=== PATIENT | male | born 1945 | race Caucasian/White ===

== ENCOUNTER 2021-05-07 08:11 | Emergency (ER) | payer OTHER, SELFPAY ==
[2021-05-07 08:35] VITALS: BP 151/67; PULSE 58; RESP 14; TEMP 36.4; O2SAT 100; BMI 25.1
--- NOTE | 2021-05-07 09:28 | DI.CT.S_ITS ---
PROCEDURE: CT KIDNEY URETER BLADDER (KUB) INDICATIONS: Right flank pain/hematuria TECHNIQUE: Axial sections were acquired from the lung bases to the pubic symphysis. Coronal and sagittal reformats were performed. For radiation dose reduction, the following was used: automated exposure control, adjustment of mA and/or kV according to patient size. COMPARISON: None. FINDINGS: Image quality: Excellent. Lung bases: Unremarkable. Heart: No significant findings. URINARY: Right Kidney: No stones or hydronephrosis. Right Ureter: No hydroureter. Left Kidney: No stones or hydronephrosis. Left Ureter: No hydroureter. Bladder: The bladder is ABDOMEN: Liver: Numerous liver hypodensities are seen, which measure up to 1.4 cm. The liver demonstrates normal size and demonstrates no suspicious lesions. Gallbladder: Layering gallstones are seen within the gallbladder. Biliary ducts: Unremarkable. Pancreas: Unremarkable. Spleen: Unremarkable. Adrenal Glands: There is a 2.8 cm left adrenal nodule that measures -4 Hounsfield units.5 the central right adrenal gland measures 1 cm and -6 Hounsfield units. Stomach and Bowel: Stomach, small bowel loops, and colon are unremarkable. Colonic diverticulosis is seen, without findings of active diverticulitis. A normal appendix is incidentally noted. Peritoneum: No abnormal intraperitoneal fluid. No free air. Ventral Wall: No hernia. Abdominal Nodes: No enlarged retroperitoneal or mesenteric lymph nodes. Vessels: Aorta and inferior vena cava are normal in size. Atherosclerotic calcification is noted. PELVIS: Pelvic Organs: The prostate is prominent, measuring 6.3 cm transversely. Pelvic Nodes: Unremarkable. Miscellaneous: No inguinal hernias are seen. Bones: [id number] levoconvex scoliotic curvature is seen. Degenerative changes are seen throughout, which are worst involving the lumbar spine. IMPRESSION: Negative for kidney stones or findings of obstructive uropathy. Moderate circumferential bladder wall thickening can be seen. Bladder outlet obstruction is suspected in this patient with a mildly enlarged prostate. Incidental note is made of: Gallstones Presumed liver cysts, differential diagnosis includes hemangiomas Bilateral lipid rich adrenal adenomas, left larger than right Diverticulosis, without active diverticulitis Normal appendix Levoconvex scoliotic curvature Dictated by: Yoav Middleton M.D. on 05/07/2021 at 8:59 Approved by: Yoav Middleton M.D. on 05/07/2021 at 9:06
--- NOTE | 2021-05-07 09:29 | ED_ITS ---
HPI - Male Genitourinary General Chief complaint: Urogenital-Male Stated complaint: Blood in urine, Back pain Time Seen by Provider: 05/07/21 09:22 Source: patient Mode of arrival: Ambulatory History of Present Illness HPI Narrative: Patient complains of right flank pain and hematuria since yesterday. Started at work and he thought he was moving too many doors at work. No relief with Aleve. Cannot find comfortable position. Denies abdominal pain. No sweating nausea or vomiting. No numbness tingling or weakness. No prior history of kidney stones. There is a family history of kidney stones. Patient states urine color has started to clear up. Did have a clot in 1 of the episodes of urinating. Related Data Previous Rx's Medication Instructions Recorded phenazopyridine 100 mg tablet 100 mg PO TID PRN #6 tab 05/07/21 (Pyridium) sulfamethoxazole 800 1 tab PO BID #14 tab 05/07/21 mg-trimethoprim 160 mg tablet Allergies Allergy/AdvReac Type Severity Reaction Status Date / Time No Known Drug Allergies Allergy Verified 05/07/21 09:02 Review of Systems Review of Systems Narrative: GENERAL: Denies chills, fatigue, malaise, fever, sweats. HEENT: Denies sinus pain, ear pain, sore throat RESPIRATORY: Denies dyspnea, cough CARDIOVASCULAR: Denies chest pain, palpitations GASTROINTESTINAL: Denies nausea, vomiting, abdominal pain : Positive for urgency and dysuria, frequency, hematuria MUSCULOSKELETAL: denies muscle or bony pain, positive for back pain/right flank pain SKIN: Denies rash, skin lesions NEUROLOGIC: Denies weakness, numbness ROS Unobtainable: All systems reviewed & are unremarkable except as noted in HPI and below Patient History Social History Smoking Status: Never smoker Smoking Status: Never smoker Substance Use Type: does not use Exam Narrative Exam Narrative: GENERAL: in no distress, not toxic not dyspneic HEAD: Normocephalic. EYES: Pupils equal round No scleral icterus. NECK: Trachea midline. CARDIOVASCULAR: Regular rate and rhythm without murmurs RESPIRATORY: Clear to auscultation. Breath sounds equal bilaterally. No wheezes, rales, or rhonchi. GASTROINTESTINAL: Abdomen soft, non-tender, no peritoneal signs, bowel sounds present EXTREMITIES: No gross deformities. BACK: No flank tenderness. No CVA tenderness. No rash on the back. No muscle tenderness. No pain with movement NEURO: AOx4. SKIN: Warm and dry PSYCH: Not anxious, is cooperative Initial Vital Signs Initial Vital Signs: Vital Signs Temperature 97.5 F L 05/07/21 08:35 Pulse Rate 58 L 05/07/21 08:35 Respiratory Rate 14 05/07/21 08:35 Blood Pressure 151/67 H 05/07/21 08:35 Pulse Oximetry 100 05/07/21 08:35 Course Course Course Narrative: No new issues during course of stay Orders Ordered: ED Orders 05/07/21 09:28 CT kidney ureter bladder (KUB) Stat 05/07/21 09:48 UA Complete [Urinalysis and Microscopic] Stat Urine Culture Stat 05/07/21 10:00 CMP [Comprehensive Metabolic Panel] Stat Complete Blood Count AUTO DIFF Stat Discontinued Medications Sodium Chloride (Normal Saline 0.9%) 1,000 mls @ 1,000 mls/hr IV BOLUS ONE Stop: 05/07/21 10:27 Last Infusion: 05/07/21 11:26 Dose: 0 mls/hr Documented by: Admin: 05/07/21 10:21 Dose: 1,000 mls/hr Documented by: ZACHARIAH Phenazopyridine HCl (Phenazopyridine 100 Mg Tablet) 100 mg PO NOW ONE Stop: 05/07/21 11:10 Last Admin: 05/07/21 11:30 Dose: 100 mg Documented by: ZACHARIAH Trimethoprim/Sulfamethoxazole (Trimeth/Sulfa 160/800 (Ds) Tablet) 1 tab PO NOW ONE Stop: 05/07/21 11:10 Last Admin: 05/07/21 11:30 Dose: 1 tab Documented by: ZACHARIAH Reevaluation(s) Reevaluation #1: Reviewed results with patient. Pain control at this time. Not toxic. Return precautions reviewed with him. Patient states he saw a urologist last year in [place] and he will see him again Time: 11:11 Vital Signs Vital signs: Vital Signs - 8 hr 05/07/21 08:35 05/07/21 10:18 05/07/21 10:20 Temperature 97.5 F L Pulse Rate 58 L 54 L 54 L Respiratory Rate 14 20 Blood Pressure 151/67 H 132/65 Pulse Oximetry 100 99 100 05/07/21 10:30 05/07/21 11:00 Temperature Pulse Rate 53 L 57 L Respiratory Rate Blood Pressure 118/58 L 129/64 Pulse Oximetry 99 99 MDM - Male Genitourinary Differential Diagnosis Differential diagnosis: Likely urinary tract infection and other (Kidney stone) Lab Data Result diagrams: 05/07/21 10:00 05/07/21 10:00 Labs: Lab Results 05/07/21 05/07/21 05/07/21 Range/Units 09:48 10:00 10:00 WBC 11.4 H (4.5-11.0) X10^3/uL RBC 4.75 (4.5-5.9) X10^6/uL Hgb 14.4 (13.5-17.5) g/dL Hct 41.9 (41-53) % MCV 88.3 (80-100) fL MCH 30.3 (26-34) PG MCHC 34.3 (30-36) % RDW 13.8 (11.6-14.8) % Plt Count 277 (150-400) X10^3/uL Neut % (Auto) 79.3 H (50-75) % Lymph % (Auto) 12.0 L (25-40) % [place] % (Auto) 7.8 (3-14) % Eos % (Auto) 0.5 L (2-4) % Baso % (Auto) 0.4 (0-2) % Neut # (Auto) 9000 H (6908-9302) /uL Lymph # (Auto) 1400 (8254-0659) /uL [place] # (Auto) 900 (0-900) /uL Eos # (Auto) 100 (0-450) /uL Baso # (Auto) 0 (0-100) /uL Sodium 137 (137-145) mmol/L Potassium 4.0 (3.4-5.1) mmol/L Chloride 103 (98-107) mmol/L Carbon Dioxide 29 (22-32) mmol/L BUN 16 (9-20) mg/dL Creatinine 0.64 L (0.66-1.25) mg/dL Estimated GFR > 60.0 (>60) mL/min BUN/Creatinine Ratio 25.0 H (6-22) Glucose 98 (80-110) mg/dL Calcium 9.3 (8.4-10.2) mg/dL Total Bilirubin 3.3 H (0.2-1.3) mg/dL AST 31 (17-59) IU/L ALT 19 (<50) IU/L Alkaline Phosphatase 62 (38-126) U/L Total Protein 7.4 (6.3-8.2) g/dL Albumin 4.4 (3.5-5.0) g/dL Globulin 3.0 (1.7-4.1) g/dL Albumin/Globulin Ratio 1.5 (1.0-2.8) Urine Color Yellow Urine Appearance Sl cloudy Urine pH 6.5 (4.5-8.0) Ur Specific [place] 1.010 (1.000-1.035) Urine Protein Trace H (Negative) Urine Glucose (UA) Negative (Negative) g/dL Urine Ketones Negative (NEGATIVE) Urine Occult Blood 3+ H (Negative) Urine Nitrate Positive H (Negative) Urine Bilirubin Negative (NEGATIVE) Urine Urobilinogen 0.2 (0.2) E.U./dL Ur Leukocyte Esterase 1+ H (NEGATIVE) Urine RBC >100/hpf H (0-5/HPF) Urine WBC 5-10/hpf H (0-5/HPF) Urine Bacteria Many (>30) H (None) Ur Culture Indicated? Specimen cultured Imaging Data CT scan - abdomen/pelvis: Radiologist's Impression: [place] [address] CT Scan Report Signed Patient: Giovany Rodriguez MR#: [id number] : 1945 Acct:[id number] Age/Sex: 75 / M Date of Service: 05/07/21 Loc: ED Accession Number: [id number] ?? Procedure: CT kidney ureter bladder (KUB) Ordering Provider: Jaspreet Izaguirre MD PROCEDURE:? CT KIDNEY URETER BLADDER (KUB) ? INDICATIONS:? Right flank pain/hematuria ? TECHNIQUE:? Axial sections were acquired from the lung bases to the pubic symphysis.? Coronal and sagittal reformats were performed.? For radiation dose reduction, the following was used: ?automated exposure control, adjustment of mA and/or kV according to patient size.? ? COMPARISON:? None. ? FINDINGS:? Image quality:? Excellent.? ? Lung bases:? Unremarkable.? ? Heart:? No significant findings. ? URINARY: Right Kidney: ? No stones or hydronephrosis.? Right Ureter:? No hydroureter.? ? Left Kidney: ? No stones or hydronephrosis. Left Ureter:? No hydroureter.? ? Bladder:? The bladder is ? ABDOMEN: Liver:? Numerous liver hypodensities are seen, which measure up to 1.4 cm.? The liver demonstrates normal size and demonstrates no suspicious lesions. Gallbladder:? Layering gallstones are seen within the gallbladder.? ? Biliary ducts:? Unremarkable.? ? Pancreas:? Unremarkable.? ? Spleen:? Unremarkable.? ? Adrenal Glands:? There is a 2.8 cm left adrenal nodule that measures -4 Hounsfield units.5 the central right adrenal gland measures 1 cm and -6 Hounsfield units. ? Stomach and Bowel:? Stomach, small bowel loops, and colon are unremarkable.? Colonic diverticulosis is seen, without findings of active diverticulitis. A normal appendix is incidentally noted.? Peritoneum:? No abnormal intraperitoneal fluid.? No free air.? ? Ventral Wall: ? No hernia.? Abdominal Nodes:? No enlarged retroperitoneal or mesenteric lymph nodes.? Vessels:? Aorta and inferior vena cava are normal in size.? Atherosclerotic calcification is noted.? ? PELVIS: Pelvic Organs:? The prostate is prominent, measuring 6.3 cm transversely.? Pelvic Nodes: Unremarkable. Miscellaneous: No inguinal hernias are seen. ? ? ? Bones:? [id number] levoconvex scoliotic curvature is seen.? Degenerative changes are seen throughout, which are worst involving the lumbar spine. ? IMPRESSION:? ? Negative for kidney stones or findings of obstructive uropathy. ? Moderate circumferential bladder wall thickening can be seen.? Bladder outlet obstruction is suspected in this patient with a mildly enlarged prostate. ? Incidental note is made of: Gallstones Presumed liver cysts, differential diagnosis includes hemangiomas Bilateral lipid rich adrenal adenomas, left larger than right Diverticulosis, without active diverticulitis Normal appendix Levoconvex scoliotic curvature ? Dictated by: Yoav Middleton M.D. on 05/07/2021 at 8:59 ? ? Approved by: Yoav Middleton M.D. on 05/07/2021 at 9:06 ? MDM Narrative Medical decision making narrative: Appropriate for discharge home. Exam and laboratory studies and imaging are reassuring. Return precautions reviewed with patient. Antibiotics started for patient. Prescriptions as well. Referral for Urology given. Patient agrees with treatment plan and follow-up. Discharge Plan Departure Patient Disposition: Home Clinical Impression: Acute hemorrhagic cystitis Instructions: DI for Urinary Tract Infection (UTI) Activity Restrictions/Additional Instructions: See your urologist next week for re-evaluation or call provided urology office today to make appointment. Keep well hydrated. Prescription has been sent to your [facility]. Continue them tonight. Return if worse if any questions or concerns Prescriptions: New sulfamethoxazole-trimethoprim 800-160 mg tablet 1 tab PO BID Qty: 14 0RF phenazopyridine [Pyridium] 100 mg tablet 100 mg PO TID PRN (Reason: pain) Qty: 6 0RF Referrals: Hal Mendes ARNP [Primary Care Provider] - Luigi Howard MD [Non-Staff] -
[2021-05-07 09:51] LABS: Appearance Urine UA SL CLOUDY; Bilirubin Urine UA NEGATIVE (NEGATIVE); Color Urine UA YELLOW; Glucose Urine UA NEGATIVE (Negative); Ketones Urine UA NEGATIVE (NEGATIVE); Leukocyte Esterase Urine UA 1+ (NEGATIVE); Nitrite Urine UA POSITIVE (Negative); Occult Blood Urine UA 3+ (Negative); Protein Urine UA TRACE (Negative); Urobilinogen Urine UA 0.2 E.U./dL (0.2); pH Urine UA 6.5 (4.5-8.0)
[2021-05-07 10:01] LABS: Bacteria Urine Many (>30); RBC Urine >100/HPF (0-5/HPF); WBC Urine 5-10/HPF (0-5/HPF)
[2021-05-07 10:02] LABS: Culture Indicated Urine Specimen Cultured
[2021-05-07 10:14] LABS: Add Manual Diff / Slide Review NO; Basophils Absolute Auto 0 /uL (0-100); Basophils Percent Auto 0.4 % (0-2); Eosinophils Absolute Auto 100 /uL (0-450); Eosinophils Percent Auto 0.5 % (2-4); Hematocrit 41.9 % (41-53); Hemoglobin 14.4 g/dL (13.5-17.5); Lymphocytes Absolute Auto 1400 /uL (1100-4500); Mean Corpuscular HGB Conc 34.3 % (30-36); Mean Corpuscular Hemoglobin 30.3 PG (26-34); Mean Corpuscular Volume 88.3 fL (80-100); Monocytes Absolute Auto 900 /uL (0-900); Monocytes Percent Auto 7.8 % (3-14); Neutrophils Absolute Auto 9000 /uL (1500-7000); Neutrophils Percent Auto 79.3 % (50-75); Platelet Count 277 X10^3/uL (150-400); Red Blood Cell Count 4.75 X10^6/uL (4.5-5.9); Red Cell Distribution Width 13.8 % (11.6-14.8); White Blood Cell Count 11.4 X10^3/uL (4.5-11.0)
[2021-05-07 10:18] VITALS: PULSE 54; O2SAT 99
[2021-05-07 10:20] VITALS: BP 132/65; PULSE 54; RESP 20; O2SAT 100
[2021-05-07] MEDS: SODIUM CHLORIDE 0.9% 1,000 ML 1000 ML IV (10:21)
[2021-05-07 10:30] VITALS: BP 118/58; PULSE 53; O2SAT 99
[2021-05-07 10:47] LABS: Alanine Aminotransferase 19 IU/L (<50); Albumin 4.4 g/dL (3.5-5.0); Albumin Globulin Ratio 1.5 (1.0-2.8); Alkaline Phosphatase 62 U/L (38-126); Aspartate Aminotransferase 31 IU/L (17-59); Bilirubin Total 3.3 mg/dL (0.2-1.3); Blood Urea Nitrogen 16 mg/dL (9-20); Calcium 9.3 mg/dL (8.4-10.2); Carbon Dioxide 29 mmol/L (22-32); Chloride 103 mmol/L (98-107); Estimated Glomerular Filt Rate > 60.0 mL/min (>60); Glucose 98 mg/dL (80-110); HEMOLYSIS < 15 (0-50); Sodium 137 mmol/L (137-145); Total Protein 7.4 g/dL (6.3-8.2)
[2021-05-07 11:00] VITALS: BP 129/64; PULSE 57; O2SAT 99
[2021-05-07] MEDS: TRIMETH/SULFA 160/800 (DS) TABLET 1 TAB PO (11:30)
[2021-05-07] MEDS: PHENAZOPYRIDINE 100 MG TABLET PO (11:30)
== END 2021-05-07 11:41 | disposition home or self-care (01) ==
PROVIDERS: Emergency Provider Emergency Medicine; PCP Registered Nurse
DX: N30.01 Acute cystitis with hematuria (principal)
CPT/HCPCS: 36415; 74176; 80053; 81001; 85025; 87077; 87086; 87186; 99284

== ENCOUNTER 2022-10-15 06:43 | Day surgery (SDC) | payer OTHER, SELFPAY ==
[2022-10-15] VITALS (9 sets, daily range): BP systolic 121–151; BP diastolic 70–83; PULSE 57–68; RESP 12–112; TEMP 36.1–36.6; O2SAT 97–100; BMI 25.1
[2022-10-15] MEDS: LACTATED RINGERS 1,000 ML 42 ML IV ×2 (07:21→09:23)
--- NOTE | 2022-10-15 08:03 | P.HP_ITS ---
History of Present Illness History of Present Illness Date Patient Seen: 10/15/22 Time Patient Seen: 08:03 Chief complaint: Colonoscopy Narrative: 77-year-old male presents today for screening colonoscopy. He has a family history of colon cancer in his father. That was the time when he had his 1st colonoscopy he subsequently had at least 3 colonoscopies in his life each time he relates that he had 2-3 polyps in the ?transverse? colon. His last [address] Stevens in to fill. He has no concerning symptoms, says he is very healthy gets a lot of exercise and works full-time, and no questions and would like to proceed today. [facility] Social History household members: spouse Smoking Status: Never smoker alcohol intake: current Meds Home Medications and Allergies Allergies Allergy/AdvReac Type Severity Reaction Status Date / Time No Known Drug Allergies Allergy Verified 10/15/22 07:06 Exam Vital Signs (past 8 hours): - 10/15/22 07:14 Temperature 96.9 F L Pulse Rate 63 Respiratory Rate 16 Blood Pressure 151/79 H Pulse Oximetry 100 Oxygen Delivery Method Room Air Oxygen Delivery Method Room Air Const General: cooperative, healthy appearing and comfortable HENMT Head: normal to inspection Eyes General: appearance normal, both eyes and all related structures Resp Effort & Inspection: normal respiratory effort and able to speak in complete sentences Cardio Pulses: radial pulses present GI Palpation: soft and tender Assessment & Plan Assessment and plan (1) Family history of colon cancer in father: Status: Acute (2) History of colon polyps: Status: Acute Assessment & Plan narrative: Presents today for screening colonoscopy I discussed the risks benefits and alternatives including but not limited to perforation of the colon and an incomplete exam he fully understands these risks and would like to proceed.
--- NOTE | 2022-10-15 09:24 | P.OP.COLON_ITS ---
Operative Date/Time/Diagnoses Date of procedure: 10/15/22 Time of procedure: 09:24 Pre-op diagnosis: Family history of colon cancer in father, history of polyps, screening for colon Post-op diagnosis: same Procedure & Clinicians Study performed: Colonoscopy Same procedure as scheduled: Yes Indications: Family history of colon cancer in father, history of polyps, screening for colon Surgeon: Sayra Cueva Procedure Notes Procedure in detail: Patient was taken to the endoscopy suite and placed in a left lateral decubitus position. A time-out was performed. With the help of anesthesiologist conscious sedation was induced and monitored throughout the case. A digital rectal exam was performed and there were no masses or strictures. Prostate was smooth. The colonoscope was introduced into the anal canal and advanced through to the cecum. There were several large diverticula throughout the sigmoid colon and even some on the right side of the colon. Photographs of these were obtained. There was some difficulty in completely intubating the cecum just into the last few cm, over the hump of the ileocecal valve, and abdominal pressure was required to achieve this. A photograph of the appendiceal orifice was then obtained. The bowel prep was good Morrison bowel prep score of 2. The scope was then withdrawn for a total of 10 minutes and no polyps were seen. A very small rent was seen upon withdrawal and photographed. The scope was then retroflexed and a photograph of the internal hemorrhoidal piles was obtained. Findings: divertiulosis Specimen(s): none sent Complications: none Post-procedure Recommendations: Colonoscopy in 5 years
[2022-10-15] MEDS: ONDANSETRON 4 MG/2 ML INJ IV (10:11)
--- NOTE | 2022-10-15 10:15 | DI.RAD.S_ITS ---
PROCEDURE: XR KUB INDICATIONS: post colonoscopy with abd pain/vomiting TECHNIQUE: One view of the abdomen acquired. COMPARISON: None. FINDINGS: Surgical changes and devices: None. Bowel: Bowel gas pattern is overall nonspecific. Scattered areas of air-filled colon are present with recent history colonoscopy. Soft tissues: No suspicious abdominal calcifications. Visualized solid organ contours appear normal in size. Bones: No suspicious bony lesions. IMPRESSION: Nonspecific bowel gas pattern with distention consistent with recent colonoscopy. No evidence of gross obstruction or perforation. Dictated by: Sivan Barton M.D. on 10/15/2022 at 11:22 Approved by: Sivan Barton M.D. on 10/15/2022 at 11:23
--- NOTE | 2022-10-15 11:20 | SUR.PHASEII ---
Dr Cueva looked at [facility] xray and states patient to be discharged now at 1115
== END 2022-10-15 11:15 | disposition home or self-care (01) ==
PROVIDERS: Referring Provider Surgery; Visit Provider Surgery
PROC: 0DJD8ZZ Inspection of Lower Intestinal Tract, Via Natural or Artificial Opening Endoscopic (ICD-10-PCS; CPT 45378; principal; 2022-10-15 07:45)
DX: Z12.11 Encounter for screening for malignant neoplasm of colon (principal); Z80.0 Family history of malignant neoplasm of digestive organs; Z86.010 Personal history of colon polyps; K57.30 Diverticulosis of large intestine without perforation or abscess without bleeding
CPT/HCPCS: 45378; 74018; J2405; J2704

== ENCOUNTER → 2024-08-29 13:43 | Outpatient (CLI) | payer BC, SELFPAY ==
--- NOTE | 2024-08-29 13:45 | DI.ECHO.S_ITS ---
[facility]+ [facility] : : [address] : : [place] : : [id number] : : Phone: [phone] Echocardiogram Report + + :Name: DWIGHT MARADIAGA Study Date: 08/29/2024 Height: 70 in : :Hospital ReadingLocation: Weight: 173 lb : : Gender: Male BSA: 2.0 m2 : :: 1945 Age: 79 yrs BP: 130/69 mmHg: :Reason For Study: SUPRAVENTRICULAR TACHYCARDIA : :Ordering Physician: Gamaliel BIRDformed By: Moraima Zhang : :Referring: KATHERIN BIRD : + + Interpretation Summary Normal biventricular size and systolic function. LVEF is 55 to 60%. Mild left atrial enlargement. No significant valvular pathology is noted. Other findings as below. No previous echo images are available for comparison. Procedure: A two-dimensional transthoracic echocardiogram with color flow and Doppler was performed. The study quality was technically adequate. There is no prior echocardiogram noted for this patient. The heart rate ranged between 45-54 bpm during the study. Left Ventricle: The left ventricle is normal in size and wall thickness. Left ventricular systolic function is normal. The ejection fraction is estimated to be 55-60%. Normal diastolic function. Right Ventricle: The right ventricle is normal in size, thickness and function. The right ventricular systolic function is normal. Atria: The left atrium is mildly dilated. Right atrial size is normal. There is no Doppler evidence for an interatrial shunt. Mitral Valve: The mitral valve leaflets appear to open well. There is mild mitral regurgitation. Aortic Valve: The aortic valve is trileaflet. The aortic valve opens well. There is no aortic valve stenosis. There is mild aortic regurgitation. Tricuspid Valve: The tricuspid valve leaflets are thin and pliable. There is mild tricuspid regurgitation. Pulmonary artery pressures cannot be estimated because of the lack of a measurable TR jet velocity but the IVC suggests a CVP of around 3 mmHg. Pulmonic Valve: The pulmonic valve leaflets are thin and pliable; valve motion is normal. There is no pulmonic valvular regurgitation. Great Vessels: The aortic root is normal size. The dimensions of the ascending aorta are normal. The IVC is of normal diameter and collapses greater than 50% with a sniff. This suggests a low right atrial pressure of 3 mm Hg. Pericardium/ Pleura There is no pericardial effusion. There is no pleural effusion. MMode/2D Measurements & Calculations LVIDd: 4.6 cm LVOT diam: 2.0 cm LVIDs: 3.0 cm Ao root diam: 3.1 cm FS: 34.7 % asc Aorta Diam: 3.0 cm IVSd: 0.69 cm Ao Arch Diam (Prox Trans): 2.8 cm LVPWd: 0.75 cm LV henry. diameter/BSA (cm/m^2): 2.3 LV sys. diameter/BSA (cm/m^2): 1.5 LA A2 area: 23.2 cm2 RA long axis: 5.8 cm LA A4 area: 19.6 cm2 RA area: 19.5 cm2 LA length (vol): 5.5 cm RA vol: 55.6 ml LA vol: 69.9 ml RA : 28.3 ml/m2 LA vol index: 35.6 ml/m2 IVC diam: 1.9 cm RVD1 (basal): 4.1 cm RVD2 (mid): 3.5 cm TAPSE: 1.7 cm Doppler Measurements & Calculations Ao V2 max: 147.0 cm/sec LVOT Max Scooby: 113.0 cm/sec Ao V2 mean: 103.5 cm/sec LV V1 max P.1 mmHg Ao max P.6 mmHg LV V1 VTI: 25.4 cm Ao mean P.8 mmHg BALDOMERO(I,D): 2.4 cm2 Ao V2 VTI: 32.8 cm BALDOMERO(V,D): 2.4 cm2 sev ratio: 0.77 BALDOMERO indexed to BSA (cm^2/m^2): 1.2 MV E max scooby: 61.8 cm/sec PA V2 max: 82.2 cm/sec MV A max scooby: 42.5 cm/sec PA V2 mean: 59.9 cm/sec MV E/A: 1.5 PA mean P.6 mmHg Med Peak E' Scooby: 9.1 cm/sec PA pr(Accel): 20.8 mmHg E/E' med: 6.8 Lat Peak E' Scooby: 11.2 cm/sec E/E' lat: 5.5 E/e' average: 6.2 MV dec time: 0.25 sec SVLVOT): 79.9 ml Reading Physician:04:23 PM
== END ==
LOC: ECHO 13:43
PROVIDERS: Referring Provider Registered Nurse; Visit Provider Registered Nurse
DX: I08.3 Combined rheumatic disorders of mitral, aortic and tricuspid valves (principal); I47.10 Supraventricular tachycardia, unspecified
CPT/HCPCS: 93306